=== PATIENT | male | born 1990 | race Caucasian/White ===

== ENCOUNTER 2017-11-23 14:30 | Emergency (ER) | payer BC ==
[~2017-11-23] VITALS: Ht 167.6 cm; Wt 62.6 kg
[2017-11-23] MEDS ORDERED: IBUPROFEN 600 MG TAB PO STA (16:08)
[2017-11-23 21:03] VITALS: BP 136/88
== END 2017-11-23 19:20 | disposition home or self-care (01) ==
LOC: ER 14:30 → FSED 19:20
DX: R50.9 Fever, unspecified (principal); H92.02 Otalgia, left ear; H65.02 Acute serous otitis media, left ear; J00 Acute nasopharyngitis [common cold]; E10.9 Type 1 diabetes mellitus without complications; F17.210 Nicotine dependence, cigarettes, uncomplicated
CPT/HCPCS: 87400; 99282

== ENCOUNTER 2023-01-11 19:48 | Emergency (ER) | payer BC ==
[~2023-01-11] VITALS: Ht 167.6 cm; Wt 62.6 kg
[2023-01-11] MEDS ORDERED: LIDOCAINE HCL 1% LOCAL INJ 20 ML VIAL INJ STA (19:51)
[2023-01-11] MEDS ORDERED: TETANUS/DIPHTHERIA TOX ADULT 0.5 ML SYR IM ONE (20:15)
[2023-01-11] MEDS ORDERED: AUGMENTIN 500-1 EACH PO (20:43)
[2023-01-11] MEDS ORDERED: DOXYCYCLINE HY100 MG PO (20:44)
[2023-01-12] MEDS ORDERED: DOXYCYCLINE HY100 MG PO (09:32)
== END 2023-01-11 21:00 | disposition home or self-care (01) ==
LOC: ER 19:55
DX: S01.551A Open bite of lip, initial encounter (principal); W54.0XXA Bitten by dog, initial encounter; Y92.89 Other specified places as the place of occurrence of the external cause; E11.9 Type 2 diabetes mellitus without complications
CPT/HCPCS: 12011; 90471; 90714; 99283; J2001

== ENCOUNTER 2023-01-21 19:16 | Emergency (ER) | payer BC ==
[~2023-01-21 19:16] MED LIST: AUGMENTIN 500-1 EACH PO; DOXYCYCLINE HY100 MG PO
== END 2023-01-21 19:45 | disposition home or self-care (01) ==
LOC: ER 19:22
DX: Z48.02 Encounter for removal of sutures (principal)